=== PATIENT | male | born 1955 | race Caucasian/White ===

== ENCOUNTER 2016-04-08 11:38 | Emergency (ER) | payer MEDICAID ==
[~2016-04-08] VITALS: Ht 177.8 cm; Wt 90.7 kg
[2016-04-08 12:06] VITALS: BP 125/80
== END 2016-04-08 14:16 | disposition home or self-care (01) ==
LOC: ER 11:38
DX: I50.9 Heart failure, unspecified (principal); I10 Essential (primary) hypertension; E07.9 Disorder of thyroid, unspecified; F17.210 Nicotine dependence, cigarettes, uncomplicated; Z76.0 Encounter for issue of repeat prescription; Z90.89 Acquired absence of other organs; Z86.73 Personal history of transient ischemic attack (TIA), and cerebral infarction without residual deficits